=== PATIENT | female | born 1995 | race African-American/Black ===

== ENCOUNTER 2016-12-04 12:24 | Emergency (ER) | payer OTHER ==
[~2016-12-04] VITALS: Ht 165.1 cm; Wt 79.5 kg
[2016-12-04 13:47] VITALS: BP 144/83
[2016-12-04] MEDS ORDERED: OxyCODONE HCL/ACETAMINOPHEN 5-325 MG TABLET PO ONE (14:00)
== END 2016-12-04 14:31 | disposition home or self-care (01) ==
LOC: EMS 12:25
DX: S13.4XXA Sprain of ligaments of cervical spine, initial encounter (principal); V89.0XXA Person injured in unspecified motor-vehicle accident, nontraffic, initial encounter; Y93.89 Activity, other specified; Y92.413 State road as the place of occurrence of the external cause; Y99.9 Unspecified external cause status
CPT/HCPCS: 72040; 99284